=== PATIENT | female | born 1990 | race Caucasian/White ===

== ENCOUNTER 2023-06-23 13:41 | Emergency (ER) | payer MEDICAID, SELFPAY ==
[2023-06-23 13:45] VITALS: BP 137/80; PULSE 59; RESP 16; TEMP 36.8; O2SAT 98; BMI 33.7
[2023-06-23 14:07] LABS: Basophils Absolute Auto 0.1 10^3/uL (0.0-0.1); Basophils Percent Auto 0.9 % (0.2-2.0); Eosinophils Percent Auto 0.4 % (0.9-7.0); Hematocrit 34.6 % (36.0-48.0); Hemoglobin 10.7 g/dL (12.0-16.0); Immature Granulocytes Abs Auto 0.09 10^3/uL (0.00-0.03); Immature Granulocytes Pct Auto 1.7 % (0.0-0.5); Lymphocytes Absolute Auto 1.1 10^3/uL (1.2-3.8); Mean Corpuscular HGB Conc 30.9 g/dL (29.9-35.2); Mean Corpuscular Hemoglobin 24.9 pg (26.7-34.0); Mean Corpuscular Volume 80.5 fL (81.0-99.0); Mean Platelet Volume 10.2 fL (9.5-13.5); Monocytes Absolute Auto 0.4 10^3/uL (0.3-0.8); Monocytes Percent Auto 6.7 % (1.7-12.0); Neutrophils Absolute Auto 3.8 10^3/uL (1.4-6.5); Neutrophils Percent Auto 70.3 % (43.0-75.0); Platelet Count 394 10^3/uL (150-450); Red Cell Distribution Width 15.8 % (11.0-15.0); White Blood Count 5.4 10^3/uL (4.0-11.0)
[2023-06-23 14:20] LABS: HCG Qualitative NEGATIVE (NEGATIVE)
[2023-06-23] MEDS: PROMETHAZINE HCL 25 MG/ML VIAL IV (14:33)
[2023-06-23] MEDS: 0.9 % SODIUM CHLORIDE 1,000 ML 1000 ML IV (14:33)
[2023-06-23] MEDS: PANTOPRAZOLE SODIUM 40 MG VIAL IV (14:34)
[2023-06-23] MEDS: FAMOTIDINE/PF 20 MG/2 ML VIAL IV (14:34)
[2023-06-23 14:49] LABS: INR 1.28; Prothrombin Time 13.4 sec (9.0-11.6)
[2023-06-23 14:55] LABS: Alanine Aminotransferase <6 U/L (14-59); Albumin Globulin Ratio 0.8; Albumin Level 3.5 g/dL (3.4-5.0); Alkaline Phosphatase 79 U/L (46-116); Aspartate Amino Transferase 16 U/L (15-37); BUN Creatinine Ratio 10.2; Bilirubin Total 0.3 mg/dL (0.2-1.0); Calcium 8.8 mg/dL (8.5-10.1); Carbon Dioxide 24.3 mmol/L (21.0-32.0); Chloride 102 mmol/L (98-107); Estimated GFR (African America >60 (>=60); Estimated GFR (Non-African Ame >60 (>=60); Globulin 4.5 g/dL; Glucose 86 mg/dL (74-106); Potassium 3.3 mmol/L (3.5-5.1); Sodium 139 mmol/L (136-145)
--- NOTE | 2023-06-23 15:02 | ED_ITS ---
HPI - Abdominal Pain General Chief Complaint: Abdominal Pain Stated Complaint: BLOOD IN STOOL Time Seen by Provider: 06/23/23 13:44 Source: patient and caregiver Mode of arrival: ambulance Limitations: no limitations History of Present Illness HPI narrative: The patient presenting to us with complaint of having black stool over the last 24 hours, she mentioned that she has been having for 5 days since she started detox epigastric pain with no radiation and nausea and vomiting with decreased p.o. intake and black stool that showed up only today initially she was having diarrhea but over the time her bowel movement number went down because she is not eating as much as per the patient The patient have history of fentanyl abuse and her last use was 5 days ago Right now the patient still have nausea and epigastric pain not radiating and the patient mentioned also that she have a history of GERD Related Data Previous Rx's Medication Instructions Recorded dicyclomine 20 mg tablet 20 mg PO QID PRN abdominal pain 06/23/23 #20 tabs famotidine 20 mg tablet (Pepcid) 20 mg PO BID 5 days #10 tabs 06/23/23 loperamide 2 mg capsule 2 mg PO QID PRN loose stool #14 06/23/23 caps pantoprazole 40 mg tablet,delayed 40 mg PO DAILY #30 tabs 06/23/23 release Allergies Allergy/AdvReac Type Severity Reaction Status Date / Time No Known Drug Allergies Allergy Verified 06/23/23 13:49 Review of Systems ROS Status of ROS 10 or more systems reviewed and unremarkable except as noted in history and below Exam Narrative Exam Narrative: Nurses notes and vital signs reviewed and patient is not hypoxic. General: Well-appearing and in no apparent distress. Skin: Warm, dry, no pallor noted. No rash. Head: Normocephalic, atraumatic. Neck: Supple, non-tender. Eye: Pupils are equal, round and EOMI. No scleral icterus. Ears, Nose, Mouth, and Throat: TM are clear, no nasal mucosal hypertrophy. Or al mucosa is moist, no posterior oropharynx erythema, uvula is mid-line Cardiovascular: Regular Rate and Rhythm without murmur, gallop or rub. Respiratory: No accessory muscle use or respiratory distress. Lungs are clear to auscultation, no wheezing, rales or rhonchi Chest Wall: no tenderness Back: No midline thoracic or lumbar vertebral tenderness. No CVA tenderness Musculoskeletal: normal ROM, no calf or popliteal tenderness, no lower extremity edema/swelling GI: Abdomen is soft, non-distended. Normal bowel sounds. No masses appreciated. Rectal exam showed that the patient have a hemorrhoid at 6:00 with tenderness on examination but there is no bleeding and there is no induration No tenderness to palpation. No rebound, guarding, or rigidity noted. Neurological: A&O x4. No cranial nerve dysfunction observed. No truncal ataxia. Moves all extremities. Sensation intact. Psychiatric: Cooperative and interactive. Normal mood and affect. Constitutional Vital Signs, click to edit/add: Last Vital Signs Temp 98.5 F 06/23/23 17:00 Pulse 66 06/23/23 17:00 Resp 14 06/23/23 17:00 BP 122/72 06/23/23 17:00 Pulse Ox 99 06/23/23 17:00 O2 Del Method Room Air 06/23/23 17:00 Course Vital Signs Vital signs: Vital Signs Temperature 98.2 F 06/23/23 13:45 Pulse Rate 59 L 06/23/23 13:45 Respiratory Rate 16 06/23/23 13:45 Blood Pressure 137/80 06/23/23 13:45 Pulse Oximetry 98 06/23/23 13:45 Oxygen Delivery Method Room Air 06/23/23 13:45 Temperature 98.5 F 06/23/23 17:00 Pulse Rate 66 06/23/23 17:00 Respiratory Rate 14 06/23/23 17:00 Blood Pressure 122/72 06/23/23 17:00 Pulse Oximetry 99 06/23/23 17:00 Oxygen Delivery Method Room Air 06/23/23 17:00 MDM - Abdominal Pain MDM Narrative Medical decision making narrative: CBC shows no acute pathology but the hemoglobin is 10.7 and there is no other level for comparison and the patient is not tachycardic and not hypotensive no active bleeding at the moment on rectal exam The patient has been having diarrhea for at least a week and she does have some irritation of the hemorrhoids and her bleeding could be secondary to that but an occult blood was found in her stool and she does have a history of GERD her CAT scan did not show any acute pathology her chemistry otherwise was within normal showing no signs of internal upper GI bleed The patient was feeling better after being treated in the ER with Protonix Pepcid and Phenergan, we were not able to obtain the other blood work-up from another facility for comparison of her hemoglobin and right now the patient was instructed to avoid NSAIDs soft diet for the next 3 to 5 days in addition to Pepcid and Protonix to be discharged with Loperamide was continued but the patient was instructed that in case there is fever or abdominal pain the patient to be brought back to us and to stop the loperamide The patient also referred to Dr. Matthews and GI service for further evaluation The patient is to follow up with primary care physician in next 2-3 days or to return to the emergency department should any of the signs or symptoms worsen or new symptoms develop. The patient agrees with the following Diagnosis and Treatment plan and the patient will be discharged home. Lab Data Labs: Lab Results 06/23/23 06/23/23 Range/Units 14:00 16:00 WBC 5.4 (4.0-11.0) 10^3/uL RBC 4.30 (4.20-5.40) 10^6/uL Hgb 10.7 L (12.0-16.0) g/dL Hct 34.6 L (36.0-48.0) % MCV 80.5 L (81.0-99.0) fL MCH 24.9 L (26.7-34.0) pg MCHC 30.9 (29.9-35.2) g/dL RDW 15.8 H (11.0-15.0) % Plt Count 394 (150-450) 10^3/uL MPV 10.2 (9.5-13.5) fL Neut % (Auto) 70.3 (43.0-75.0) % Lymph % (Auto) 20.0 L (20.5-60.0) % [place] % (Auto) 6.7 (1.7-12.0) % Eos % (Auto) 0.4 L (0.9-7.0) % Baso % (Auto) 0.9 (0.2-2.0) % Neut # (Auto) 3.8 (1.4-6.5) 10^3/uL Lymph # (Auto) 1.1 L (1.2-3.8) 10^3/uL [place] # (Auto) 0.4 (0.3-0.8) 10^3/uL Eos # (Auto) 0.0 (0.0-0.7) 10^3/uL Baso # (Auto) 0.1 (0.0-0.1) 10^3/uL Abs Immat Gran (auto) 0.09 H (0.00-0.03) 10^3/uL Imm/Tot Granulo (auto) 1.7 H (0.0-0.5) % PT 13.4 H (9.0-11.6) sec INR 1.28 Sodium 139 (136-145) mmol/L Potassium 3.3 L (3.5-5.1) mmol/L Chloride 102 (98-107) mmol/L Carbon Dioxide 24.3 (21.0-32.0) mmol/L Anion Gap 16.0 BUN 9.0 (7.0-18.0) mg/dL Creatinine 0.88 (0.55-1.02) mg/dL Est GFR ( Amer) >60 (>=60) Est GFR (Non-Af Amer) >60 (>=60) BUN/Creatinine Ratio 10.2 Glucose 86 (74-106) mg/dL Calcium 8.8 (8.5-10.1) mg/dL Total Bilirubin 0.3 (0.2-1.0) mg/dL AST 16 (15-37) U/L ALT <6 L (14-59) U/L Alkaline Phosphatase 79 (46-116) U/L Total Protein 8.0 (6.4-8.2) g/dL Albumin 3.5 (3.4-5.0) g/dL Globulin 4.5 g/dL Albumin/Globulin Ratio 0.8 Serum HCG, Qual Negative (NEGATIVE) Stool Occult Blood Positive A Stl C. cayetanensis PCR Not detected (NOT DETECTE) Stool Rotavirus (PCR) Not detected (NOT DETECTE) Stool Adenovirus (PCR) Not detected (NOT DETECTE) Stool Astrovirus (PCR) Not detected (NOT DETECTE) Stool Campylobacter PCR Not detected (NOT DETECTE) Stool Cryptosporidium PCR Not detected (NOT DETECTE) St Sh/Enteroin Ecoli PCR Not detected (NOT DETECTE) Stl Enterotoxigenic E PCR Not detected (NOT DETECTE) Stool EPEC (PCR) Not detected (NOT DETECTE) Stl E. histolytica PCR Not detected (NOT DETECTE) Stool Giardia Lamblia PCR Not detected (NOT DETECTE) Stl P. shigelloides PCR Not detected (NOT DETECTE) Stool Salmonella PCR Not detected (NOT DETECTE) Stool Sapovirus (PCR) Not detected (NOT DETECTE) Stl Shiga-like Tx 1 PCR Not detected (NOT DETECTE) St Y.enterocolitica PCR Not detected (NOT DETECTE) Stl Vibrio cholerae PCR Not detected (NOT DETECTE) Stl Enteroaggr Ecoli PCR Not detected (NOT DETECTE) Stl Norovirus GI/GII PCR Not detected (NOT DETECTE) C. difficile Toxin A&B Not detected (NOT DETECTE) Vibrio Culture Not detected (NOT DETECTE) Blood Type A Positive Antibody Screen Negative Discharge Plan Discharge Chief Complaint: Abdominal Pain Clinical Impression: Gastritis Patient Disposition: Home, Self-Care Time of Disposition Decision: 17:57 Condition: Good Prescriptions / Home Meds: New famotidine [Pepcid] 20 mg tablet 20 mg PO BID 5 Days Qty: 10 0RF pantoprazole 40 mg tablet,delayed release (DR/EC) 40 mg PO DAILY Qty: 30 0RF dicyclomine 20 mg tablet 20 mg PO QID PRN (Reason: abdominal pain) Qty: 20 0RF loperamide 2 mg capsule 2 mg PO QID PRN (Reason: loose stool) Qty: 14 0RF Rx Instructions: not more than 12 mg total per day Instructions: Gastritis (ED), Soft Diet (ED) Stand Alone Forms: Portal Instructions Referrals: Darrell GONZALES [Physician] - As soon as possible JANY ALVARADO [Primary Care Provider] - 1 week
--- NOTE | 2023-06-23 15:49 | CT_ITS ---
[address] [address] Patient Name: SAHRA BRODY MRN: [id number] date: 1990 Sex: F Assigned Patient Location: ER Current Patient Location: Accession/Order Number: [id number] Exam Date: 06/23/2023 16:00 Report Date: 06/23/2023 16:16 At the request of: ALEA FONTANEZ Procedure: CT abdomen pelvis wo con EXAM: CT abdomen pelvis wo con TECHNIQUE: Axial CT images were obtained of the abdomen and pelvis without intravenous contrast. Sagittal and coronal reformatted images were also obtained. Dose reduction techniques were achieved by using automated exposure control and/or adjustment of mA and/or kV according to patient size and/or use of iterative reconstruction technique. HISTORY: abd pain COMPARISON: None. FINDINGS: Lower chest: The lower lungs are clear. Liver: The liver is homogeneous with normal contours and normal size. Gallbladder: The gallbladder is unremarkable. There is no intra or extrahepatic biliary dilatation. Pancreas: The pancreas is homogeneous without evidence for mass lesion or inflammation. Spleen: The spleen is unremarkable without evidence for mass lesion. Adrenal glands: The adrenal glands are unremarkable Kidneys and bladder: The kidneys are unremarkable with no evidence for mass lesion, hydronephrosis or inflammation. The ureters demonstrate normal caliber. The urinary bladder is unremarkable. GI Tract: Stomach is unremarkable. Visualized small bowel is unremarkable without evidence for obstruction or active inflammation. The appendix is unremarkable.The visualized portion of the large bowel is unremarkable. Reproductive: Unremarkable Lymph nodes: No retroperitoneal or abdominal lymphadenopathy. Vascular: The aorta is not dilated. Peritoneum: No free intraperitoneal air or fluid. No acute inflammation. Abdominal wall: Unremarkable without acute abnormality. CT/CT abdomen pelvis wo con IMPRESSION: No acute abdominal pathology. No acute inflammatory process. No obstructing urinary tract stone. No evidence for bowel obstruction. Electronically authenticated by: FRANCO GREGORY Date: 06/23/2023 16:16
[2023-06-23 16:06] LABS: Adenovirus F 40/41 NOT DETECTED (NOT DETECTE); Astrovirus NOT DETECTED (NOT DETECTE); Campylobacter NOT DETECTED (NOT DETECTE); Cryptosporidium NOT DETECTED (NOT DETECTE); Cyclospora cayetanensis NOT DETECTED (NOT DETECTE); Entamoeba histolytica NOT DETECTED (NOT DETECTE); Enteroaggregative E.coli NOT DETECTED (NOT DETECTE); Enteropathogenic E.coli NOT DETECTED (NOT DETECTE); Enterotoxigenic E. coli NOT DETECTED (NOT DETECTE); Giardia lamblia NOT DETECTED (NOT DETECTE); Norovirus GI/GII NOT DETECTED (NOT DETECTE); Plesiomonas shigelloides NOT DETECTED (NOT DETECTE); Rotavirus A NOT DETECTED (NOT DETECTE); Salmonella NOT DETECTED (NOT DETECTE); Sapovirus NOT DETECTED (NOT DETECTE); Shiga-like toxin-producing E.C NOT DETECTED (NOT DETECTE); Shigella/Enteroinvasive E.coli NOT DETECTED (NOT DETECTE); Vibrio NOT DETECTED (NOT DETECTE); Vibrio cholerae NOT DETECTED (NOT DETECTE); Yersinia enterocolitica NOT DETECTED (NOT DETECTE)
--- NOTE | 2023-06-23 16:12 | PC.NURSE ---
Rectal exam done by Dr West. Tested for occult blood. Pt up to the bathroom and passed theodore red looking liquid stool. Specimen obtained .
[2023-06-23 16:14] LABS: Occult Blood Positive
[2023-06-23 17:00] VITALS: BP 122/72; PULSE 66; RESP 14; TEMP 36.9; O2SAT 99
[2023-06-23] MEDS: LOPERAMIDE HCL 2 MG CAPSULE 4 MG PO (18:12)
[2023-06-23 18:15] VITALS: PULSE 68; RESP 14; O2SAT 97
[2023-06-23 18:30] VITALS: BP 125/70; PULSE 70; RESP 14; O2SAT 97
== END 2023-06-23 18:33 | disposition home or self-care (01) ==
PROVIDERS: Emergency Provider Emergency Medicine; PCP Family Medicine
DX: K29.70 Gastritis, unspecified, without bleeding (principal); F11.10 Opioid abuse, uncomplicated
CPT/HCPCS: 36415; 74176; 80053; 84703; 85025; 85610; 86850; 86900; 86901; 87507; 96361; 96374; 96375; 99285; G0328